=== PATIENT | female | born 1965 | race Caucasian/White ===

== ENCOUNTER 2021-10-20 09:58 | Emergency (ER) | payer BC ==
[~2021-10-20 09:58] MED LIST: ALEVE PM CAPLE1 EACH PO; ARAVA20 MG PO; AZULFIDINE500 MG PO; CEFACLOR500 MG PO; COLACE 100MG C100 MG PO; CRANBERRY500 MG PO; ELAVIL 25 MG TA25 MG PO; FLEXERIL 10 MG10 MG PO; FLORASTOR250 MG PO; FML 0.1% OP SUSP5 ML OU; GABAPENTIN600 MG PO; IBGARD90 MG PO; IBUPROFEN800 MG PO; IMODIUM MULTI-1 EACH PO; LEVAQUIN500 MG PO; MELATONIN10 M2 PO; NORCO 5-325 TA1 EACH PO; PAXIL40 MG PO; PHENERGAN 25 MG25 M1 PO; PLAQUENIL 200200 MG PO; PREDNISONE 50 M50 MG PO; PREDNISONE5 MG PO; SINGULAIR10 MG PO; THERAGRAN M TAB1 EA PO; TOPAMAX25 MG PO; TREXIMET 85-501 EACH PO; Voltaren Gel 1 % TOP; WELLBUTRIN 75 M75 MG PO; ZOFRAN4 MG PO
[2021-10-20 10:51] LABS: HEMOGLOBIN 14.4 gm/dl (12.3-15.3); RED BLOOD COUNT 5.12 M/UL (4.00-5.10); WHITE BLOOD COUNT 4.9 K/UL (4.5-11.0)
[2021-10-20 11:24] LABS: BUN/CREATININE RATIO 29 (0-10)
[2021-10-20] MEDS ORDERED: PROTONIX 40 MG40 M1 PO (13:24)
[2021-10-20] MEDS ORDERED: PHENERGAN 25 MG25 M1 PO (13:32)
== END 2021-10-20 13:45 | disposition home or self-care (01) ==
LOC: ER1 09:58
PROVIDERS: Family Medicine
DX: R10.9 Unspecified abdominal pain (principal); R19.7 Diarrhea, unspecified; R11.2 Nausea with vomiting, unspecified; D84.9 Immunodeficiency, unspecified; Z87.19 Personal history of other diseases of the digestive system; Z79.52 Long term (current) use of systemic steroids
CPT/HCPCS: 80053; 81001; 83605; 83690; 83735; 85025; 96374; 96375; 99284; C9113; J2270; J2405; J7030; Q9967

== ENCOUNTER 2021-11-19 22:39 | Emergency (ER) | payer BC ==
[~2021-11-19 22:39] MED LIST changes: +PROTONIX 40 MG40 M1 PO
[2021-11-19 23:31] LABS: HEMOGLOBIN 14.3 gm/dl (12.3-15.3); RED BLOOD COUNT 5.2 M/UL (4.00-5.10); WHITE BLOOD COUNT 12.2 K/UL (4.5-11.0)
[2021-11-19 23:57] LABS: BUN/CREATININE RATIO 25 (0-10)
[2021-11-20] MEDS ORDERED: DOXYCYCLINE HY100 MG PO (02:35)
== END 2021-11-20 02:55 | disposition home or self-care (01) ==
LOC: ER1 22:39
PROVIDERS: Physician Assistant
DX: R11.2 Nausea with vomiting, unspecified (principal); R19.7 Diarrhea, unspecified; R50.9 Fever, unspecified; R10.817 Generalized abdominal tenderness; Z87.442 Personal history of urinary calculi; Z88.8 Allergy status to other drugs, medicaments and biological substances; Z20.822 Contact with and (suspected) exposure to COVID-19
CPT/HCPCS: 0240U; 71045; 80053; 81001; 82550; 82553; 83605; 83735; 83880; 84100; 84484; 85025; 85610; 85652; 85730; 86140; 87040; 87086; 93005; 96360; 99284; Q9967